=== PATIENT | male | born 1990 | race Caucasian/White ===

== ENCOUNTER 2022-11-07 08:27 | Emergency (ER) | payer OTHER ==
--- NOTE | 2022-11-07 08:29 | ERPHSYRPT ---
- History of Present Illness Time Seen by Provider: 11/07/22 08:29 Historian: patient Exam Limitations: no limitations Physician History: This is a 32-year-old white male patient of Dr. Roberts who presents with left anterior chest pain that was sudden onset this morning while working on a stove. He has not experienced any trauma to his chest. He did not have this pain this morning prior to working on the stove. He has no diagnosed cardiac history. He takes no medications chronically and he is allergic to penicillin. He denies shortness of breath. Pain is elicited with palpating the area of the left anterior chest wall. He has not had a fever. He denies cough. He has no abdominal pain. He said no nausea vomiting or diarrhea. Activities at Onset: none Quality: sharpness Location: other (Left anterior chest wall) Chest Pain Radiation: no radiation Severity of Pain-Max: moderate Severity of Pain-Current: moderate Modifying Factors: Improves With: breathing (Deep breath worsens), palpation (Worsens) Associated Symptoms: hurts to breathe (Left anterior chest with deep breath), No palpitations, No heartburn, No abdominal pain, No shortness of breath Prior Chest Pain/Cardiac Workup: no prior chest pain Nitro Today/Relief: no nitro taken today Aspirin Treatment Today: no aspirin today Allergies/Adverse Reactions: Penicillins Allergy (Verified 11/07/22 08:36) Swelling Home Medications: Benztropine Mesylate 0.5 mg PO DAILY 11/07/22 [History] risperiDONE [Risperidone] 2 mg PO DAILY 11/07/22 [History] Travel Risk - International Travel Have you traveled outside of the country in past 3 weeks: No - Coronavirus Screening Are you exhibiting any of the following symptoms?: No Close contact with a COVID-19 positive Pt in past 14-21 Days: No - Review of Systems Constitutional: No Symptoms Eyes: No Symptoms Ears, Nose, & Throat: No Symptoms Respiratory: No Symptoms Cardiac: Chest Pain (Left anterior chest wall) Abdominal/Gastrointestinal: No No Symptoms Genitourinary Symptoms: No Symptoms Musculoskeletal: No Symptoms Skin: No Symptoms Neurological: No Symptoms Psychological: No Symptoms Endocrine: No Symptoms Hematologic/Lymphatic: No Symptoms Immunological/Allergic: No Symptoms All Other Systems: Reviewed and Negative - Past Medical History Pertinent Past Medical History: No - Past Surgical History Past Surgical History: No - Nursing Vital Signs Nursing Vital Signs: Initial Vital Signs Temperature 97.3 F 11/07/22 08:28 Pulse Rate 81 11/07/22 08:28 Respiratory Rate 22 11/07/22 08:28 Blood Pressure 143/77 11/07/22 08:28 O2 Sat by Pulse Oximetry 100 11/07/22 08:28 Pain Scale Pain Intensity 4 - Physical Exam General Appearance: no apparent distress, alert, anxiety, thin Eye Exam: PERRL/EOMI, eyes nml inspection Ears, Nose, Throat Exam: normal ENT inspection, moist mucous membranes Neck Exam: normal inspection, non-tender, supple, full range of motion Respiratory Exam: normal breath sounds, lungs clear, airway intact, No chest tenderness, No respiratory distress Cardiovascular Exam: regular rate/rhythm, normal heart sounds, normal peripheral pulses Gastrointestinal/Abdomen Exam: soft, normal bowel sounds, No tenderness Rectal Exam: not done Back Exam: normal inspection, normal range of motion, No CVA tenderness, No vertebral tenderness Extremity Exam: normal inspection, normal range of motion, pelvis stable Neurologic Exam: alert, oriented x 3, cooperative, 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, normal mood/affect, nml cerebellar function, nml station & gait, sensation nml Skin Exam: normal color, warm, dry Lymphatic Exam: No adenopathy SpO2 Interpretation: normal O2 Delivery: Room Air - Course Nursing assessment & vital signs reviewed: Yes EKG Interpreted by Me: RATE (71), Sinus Rhythm, NORMAL AXIS, NORMAL INTERVALS, NORMAL QRS, NORMAL ST-T, Other (No acute ischemic changes on today's twelve-lead EKG.) Ordered Tests: Active Orders 24 hr Category Date Time Status Aligner 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 STAT Care 11/07/22 08:30 Active EKG-ER Only STAT Care 11/07/22 08:30 Active IV Insertion STAT Care 11/07/22 08:30 Active CHEST 1 VIEW (PORTABLE) Stat Exams 11/07/22 08:30 Taken CBC W DIFF Stat Lab 11/07/22 08:41 Completed CMP Stat Lab 11/07/22 08:41 Completed D-DIMER QUANTITATIVE Stat Lab 11/07/22 08:41 Completed TROPONIN Q4H Lab 11/07/22 08:41 Completed TROPONIN Q4H Lab 11/07/22 12:30 Ordered TROPONIN Q4H Lab 11/07/22 16:30 Ordered Medication Summary Discontinued Medications Generic Name Dose Route Start Last Admin Trade Name Cricket PRN Reason Stop Dose Admin Aspirin 324 mg 11/07/22 08:30 11/07/22 08:35 Aspirin 81 Mg Tab.Chew PO 11/07/22 08:31 324 mg STAT ONE Administration Lab/Rad Data: Laboratory Result Diagrams 11/07/22 08:41 11/07/22 08:41 Laboratory Results 11/07/22 11/07/22 11/07/22 Range/Units 08:41 08:41 08:41 WBC 4.9 (4.0-10.5) x10^3/uL RBC 4.04 L (4.1-5.6) x10^6/uL Hgb 13.2 (12.5-18.0) g/dL Hct 39.4 L (42-50) % MCV 97.5 (78-100) fL MCH 32.7 H (26-32) pg MCHC 33.5 (32-36) g/dL RDW 11.8 (11.5-14.0) % Plt Count 259 (150-450) x10^3/uL MPV 9.4 (7.5-11.0) fL Gran % 48.3 (36.0-66.0) % Immature Gran % (Auto) 0.2 (0.00-0.4) % Nucleat RBC Rel Count 0.0 (0.00-0.1) % Eos # (Auto) 0.12 (0-0.5) x10^3/uL Immature Gran # (Auto) 0.01 (0.00-0.03) x10^3u/L Absolute Lymphs (auto) 1.90 (1.0-4.6) x10^3/uL Absolute Monos (auto) 0.45 (0.0-1.3) x10^3/uL Absolute Nucleated RBC 0.00 (0.00-0.01) x10^3u/L Lymphocytes % 39.1 (24.0-44.0) % Monocytes % 9.3 (0.0-12.0) % Eosinophils % 2.5 (0.00-5.0) % Basophils % 0.6 (0.0-0.4) % Absolute Granulocytes 2.35 (1.4-6.9) x10^3/uL Basophils # 0.03 (0-0.4) x10^3/uL D-Dimer 0.19 (0.0-0.50) mg/L Sodium 136 L (137-145) mmol/L Potassium 4.1 (3.5-5.1) mmol/L Chloride 106 (98-107) mmol/L Carbon Dioxide 26 (22-30) mmol/L Anion Gap 8.0 (5-15) MEQ/L BUN 6 L (9-20) mg/dL Creatinine 0.79 (0.66-1.25) mg/dL Estimated GFR > 60.0 ML/MIN Glucose 89 (74-106) mg/dL Calcium 9.2 (8.4-10.2) mg/dL Total Bilirubin 0.60 (0.2-1.3) mg/dL AST 45 (17-59) U/L ALT 17 (0-50) U/L Alkaline Phosphatase 52 (38-126) U/L Troponin I < 0.012 (0.000-0.034) ng/mL Serum Total Protein 7.1 (6.3-8.2) g/dL Albumin 4.6 (3.5-5.0) g/dL - Progress Progress: improved, re-examined Air Movement: good Progress Note: 11/07/22 09:37 Chest x-ray was read by me and I do not appreciate any acute cardiopulmonary ab normality. There is no obvious rib fractures present. Blood Culture(s) Obtained: No Antibiotics given: No Counseled pt/family regarding: lab results, diagnosis, need for follow-up, rad results - Departure Departure Disposition: Home Clinical Impression: Musculoskeletal pain Condition: Stable Critical Care Time: No Referrals: AYDEN ROBERTS, [Primary Care Provider] - Follow up/PCP as directed Additional Instructions: Ice pack to area 3 times a day for the next 48 hours. Take your medication as prescribed. Follow-up with your primary care provider for further evaluation management. Do not do any heavy lifting or strenuous activity for 48 hours. Alternate Tylenol and ibuprofen every 4 hours while awake Prescriptions: Orphenadrine Citrate 100 mg [Norflex 100 MG Tablet] 100 mg PO BID #10 tab
[2022-11-07] MEDS ORDERED: BABY ASPIRIN 81 MG CHEW PO ONE (08:30)
[2022-11-07 08:45] LABS: Absolute Neutrophil Ct (ANC) 2.35 x10^3/uL (1.4-6.9); Basophil (Absolute #) 0.03 x10^3/uL (0-0.4); Eosinophil % 2.5 % (0.00-5.0); Eosinophil (Absolute #) 0.12 x10^3/uL (0-0.5); Hematocrit 39.4 % (42-50); Hemoglobin 13.2 g/dL (12.5-18.0); Lymphocytes % 39.1 % (24.0-44.0); Mean Cell Volume 97.5 fL (78-100); Mean Corpuscular Hemoglobin 32.7 pg (26-32); Mean Corpuscular Hgb Concent. 33.5 g/dL (32-36); Mean Platelet Volume 9.4 fL (7.5-11.0); Monocyte (Absolute #) 0.45 x10^3/uL (0.0-1.3); Monocytes % 9.3 % (0.0-12.0); Neutrophil % 48.3 % (36.0-66.0); Platelet Count 259 x10^3/uL (150-450); Red Blood Count 4.04 x10^6/uL (4.1-5.6); Red Cell Distribution Width 11.8 % (11.5-14.0); White Blood Count 4.9 x10^3/uL (4.0-10.5)
[2022-11-07 09:13] LABS: ALBUMIN 4.6 g/dL (3.5-5.0); ALKALINE PHOSPHATASE 52 U/L (38-126); BLOOD UREA NITROGEN 6 mg/dL (9-20); CHLORIDE 106 mmol/L (98-107); Calcium 9.2 mg/dL (8.4-10.2); Carbon Dioxide 26 mmol/L (22-30); Creatinine 1 0.79 mg/dL (0.66-1.25); EST GLOMERULAR FILTRATION RATE > 60.0 ML/MIN; Glucose 89 mg/dL (74-106); Potassium 4.1 mmol/L (3.5-5.1); SGOT/AST 45 U/L (17-59); SGPT/ALT 17 U/L (0-50); SODIUM 136 mmol/L (137-145); TROPONIN < 0.012 ng/mL (0.000-0.034); Total Protein 7.1 g/dL (6.3-8.2)
[2022-11-07 09:35] VITALS: O2SAT 98
--- NOTE | 2022-11-07 09:58 | XRAY ---
Indication: Chest pain. Comparison: None Portable chest hyperinflated and clear. Heart and mediastinal structures within normal limits. Bony thorax intact. Impression: Nonacute hyperinflated chest.
[2022-11-07 10:15] VITALS: BP 116/63; PULSE 66
== END 2022-11-07 10:29 | disposition home or self-care (01) ==
LOC: ED 08:27
DX: R07.89 Other chest pain (principal); Z79.899 Other long term (current) drug therapy
CPT/HCPCS: 36000; 36415; 71045; 80053; 84484; 85025; 85379; 93005; 93041; 99284; A9270-GY